=== PATIENT | male | born 1970 | race Caucasian/White ===

== ENCOUNTER 2022-08-25 18:24 | Inpatient (IN) | payer OTHER ==
[~2022-08-25] VITALS: Ht 185.4 cm; Wt 122.0 kg
--- NOTE | 2022-08-25 18:52 | NUR ---
ASSUME PT CARE, WAS SENT FROM [facility] FOR NOTED TACHYCARDIA AND HYPOXIA, PER EMS REPORT PT WAS RECENTLY DIAGNOSED W/ PNEUMONIA. 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 PLACED ON MONITOR. AWAITING MD THACKER
[2022-08-25] MEDS ORDERED: ACETAMINOPHEN 650 MG/SUPP.RECT RC ONE ×2 (19:00→19:09)
[2022-08-25] MEDS ORDERED: VANCOMYCIN 1 GM in IV D5W 250 ML IV ONE (19:00)
[2022-08-25] MEDS ORDERED: IV NS 0.9% 1,000 ML BAG IV ONE (19:00)
[2022-08-25] MEDS ORDERED: CEFEPIME 1 GM in IV D5W 50 ML IV ONE (19:00)
--- NOTE | 2022-08-25 19:01 | NUR ---
DR PERAZA AT BEDSIDE FOR EVAL.
--- NOTE | 2022-08-25 19:11 | NUR ---
COVID TEST COLLECTED AND SENT
[2022-08-25] MEDS ORDERED: CEFEPIME 1 GM VIAL ONE (19:23)
[2022-08-25] MEDS ORDERED: VANCOMYCIN 1 GM VIAL ONE (19:23)
[2022-08-25 19:35] LABS: BILIRUBIN,URINE NEGATIVE (NEGATIVE); COLOR,URINE YELLOW (YELLOW); LEUKOCYTE ESTERASE ,URINE NEGATIVE (NEGATIVE); NITRITE, URINE NEGATIVE (NEGATIVE); PH,URINE 5.5 (5.0-8.0); UGLUCOSE NEGATIVE (NEGATIVE); UROBILINOGEN,URINE 0.2 EU/dL (0.2)
[2022-08-25 19:36] LABS: PROTEIN,URINE NEGATIVE (NEGATIVE)
[2022-08-25 19:48] LABS: CARBON DIOXIDE 34 mmol/L (21-32); CHLORIDE 100 mmol/L (98-107); CREATININE 0.9 mg/dL (0.6-1.3); GLUCOSE 188 mg/dL (74-106); POTASSIUM 4.4 mmol/L (3.5-5.1); SODIUM SERUM 138 mmol/L (136-145); UREA NITROGEN, BLOOD 16 mg/dL (7-18)
--- NOTE | 2022-08-25 19:49 | NUR ---
XRAY DONE AT BEDSIDE
--- NOTE | 2022-08-25 19:50 | NUR ---
PT IS HARDSTICK. MIDLINE INSERTION REQUESTED. RN TANNERY WORKER MADE AWARE
[2022-08-25 20:01] LABS: ALANINE AMINOTRANSFERASE 178 U/L (12-78); ALBUMIN 3.4 g/dL (3.4-5.0); ALKALINE PHOSPHATASE 99 U/L (46-116); ASPARTATE AMINOTRANSFERASE 135 U/L (15-37); BILIRUBIN,DIRECT 0.2 mg/dL (0.0-0.2); BILIRUBIN,TOTAL 0.5 mg/dL (0.2-1.0); TOTAL PROTEIN, SERUM 8.8 g/dL (6.4-8.2)
--- NOTE | 2022-08-25 20:06 | NUR ---
LACTIC ACID 2.6
--- NOTE | 2022-08-25 20:06 | NUR ---
MIDLINE NURSE ETA 1 HR
[2022-08-25 20:27] LABS: BASOPHILS # (AUTO) 0.1 K/uL (0.0-0.2); BASOPHILS % (AUTO) 0.3 % (0.0-2.0); EOSINOPHILS % (AUTO) 1.6 % (0.0-6.0); HEMATOCRIT 38 % (39-51); HEMOGLOBIN 12.3 g/dL (13.5-17.5); LYMPHOCYTES # (AUTO) 2.5 K/uL (0.8-4.8); LYMPHOCYTES % (AUTO) 11.8 % (20.0-44.0); MEAN CORPUSCULAR HGB CONC 33 g/dl (31.0-36.0); MEAN CORPUSCULAR VOLUME 101 fL (80-96); MONOCYTES # (AUTO) 1.6 K/uL (0.1-1.30); MONOCYTES % (AUTO) 7.3 % (2.0-12.0); NEUTROPHILS # (AUTO) 17.1 K/uL (1.8-8.9); PLATELET COUNT (AUTO) 434 K/uL (150-450); RED BLOOD CELL COUNT(AUTO) 3.71 MIL/uL (4.5-6.0); WHITE BLOOD COUNT (AUTO) 21.6 K/uL (4.3-11.0)
[2022-08-25 20:50] LABS: BAND % (MANUAL) 4 % (0.0-5.0); EOSINOPHILS % (MANUAL) 1 % (0-4); LYMPHOCYTES % (MANUAL) 9 % (16-48); MONOCYTES % (MANUAL) 7 % (0-11.0); NEUTROPHILS % (MANUAL) 79 (42-76)
[2022-08-25] MEDS ORDERED: IV NS 0.9% 1,000 ML IV ONE (21:30)
--- NOTE | 2022-08-25 21:33 | NUR ---
CALLED [facility]
--- NOTE | 2022-08-25 21:34 | NUR ---
OSMIN SPEAKING WITH DR PERAZA
--- NOTE | 2022-08-25 22:06 | NUR ---
RM 117-1
--- NOTE | 2022-08-25 22:29 | NUR ---
REPORT GIVEN TO OJSEPH LEWIS FOR GIBSON
[2022-08-25] MEDS ORDERED: MAG HYDROX/AL HYDROX/SIMETH 30 ML UDC PO PRN (22:30)
[2022-08-25] MEDS ORDERED: Z GUARD REMEDY 4 OZ OINT TP PRN (22:30)
[2022-08-25] MEDS ORDERED: ONDANSETRON HCL/PF 4 MG/2 ML VIAL IVP PRN (22:30)
[2022-08-25] MEDS ORDERED: ACETAMINOPHEN 325 MG TABLET PO PRN (22:30)
[2022-08-25] MEDS ORDERED: MAGNESIUM HYDROXIDE 30 ML UDC PO PRN (22:30)
--- NOTE | 2022-08-25 22:43 | NUR ---
PT TRANSFERRING TO [facility] VIA ACLS PROTOCOL. VSS.
--- NOTE | 2022-08-25 22:46 | NUR ---
UPDATED ARMAAN(DAUGHTER) [phone]
--- NOTE | 2022-08-25 22:53 | NUR ---
PT TRANSFERRED TO 117-1 VIA ACLS PROTOCOL
[2022-08-26] MEDS: IV NS 0.9% 1,000 ML IV SCH ×3 (00:07→17:38)
[2022-08-26] MEDS: ENOXAPARIN SODIUM 40 MG/0.4 ML DISP.SYRIN SQ SCH ×2 (00:08→21:22)
[2022-08-26] MEDS ORDERED: CEFEPIME 1 GM VIAL ONE ×2 (00:09→06:02)
[2022-08-26] MEDS: CEFEPIME 2 GM in IV D5W 100 ML IV SCH ×4 (00:15→20:39)
--- NOTE | 2022-08-26 00:36 | NUR ---
TEACHING SUPERVISOR ADMISSION NOTES ADMITTED A 52 YEAR OLD MALE, CAME FROM ER VIA GURNEY. PATIENT IS A/O X 1 CAN OPEN EYE BUT NON-VERBAL, NO PAIN RESPONSE AND CONFUSED. ON OXYGEN VIA TRACHEOSTOMY MASK AT 10LPM SATURATING AT 99%,UNLABORED BREATHING. NO S/S OF DISTRESS OR CHEST PAIN AT THIS TIME. TRANSFERRED TO BED SAFELY AND SECURED. WITH VITAL SIGN OF BP:108/61, TEMP:98. HR:84, RR:19.ATTACHED TO TELE MONITORING DEVICE. SKIN ASSESSMENT PERFORMED NOTED SACRAL REDNESS, MID ABDOMEN RASHES AND TRACHE SITE RASHES PICTURE TAKEN AND RECORDED. WITH G-TUBE NOTED. BOWEL SOUNDS IS ACTIVE. WITH IV ACCESS AT RIGHR MIDLINE #20G WITH NS AT 100ML/HOUR INFUSING WELL.PATIENT AND WAS ORIENTED TO ROOM AND UNIT POLICY. PM CARE RENDERED. HSTORY TAKEN VIA CALL FROM LEONEL DUENAS NOTED AND RECORDED,PATIENT HAS COMPLETE WEAKNESS ON BOTH UPPER AND LOWER EXTREMITIES NOTED. UNCOOPERATIVE AND UNABLE TO RESPONSE. KEPT BED ON LOWER LOCKED POSITION, KEPT SIDE RAILS X 3 UP AT ALL TIMES. KEPT CALL LIGHT WITHIN REACH.WILL CONTINUE TO MONITOR.
[2022-08-26] MEDS ORDERED: ASPI-1169 GT (03:16)
[2022-08-26] MEDS ORDERED: ONDA4TAB11 GT (03:16)
[2022-08-26] MEDS ORDERED: NALO4SPR (03:16)
[2022-08-26] MEDS ORDERED: CARV3.122 GT (03:16)
[2022-08-26] MEDS ORDERED: LEVE1000 GT (03:16)
[2022-08-26] MEDS ORDERED: BACL10TA GT (03:16)
[2022-08-26] MEDS ORDERED: AMLO-213 GT (03:16)
[2022-08-26] MEDS ORDERED: SENN-261 GT (03:16)
[2022-08-26] MEDS ORDERED: ENOX40DI9 SQ (03:16)
[2022-08-26] MEDS ORDERED: ALBU2.5V13 NEB (03:16)
[2022-08-26] MEDS ORDERED: LANS30CA54 GT (03:16)
[2022-08-26] MEDS ORDERED: DOCU100C36 GT (03:16)
[2022-08-26] MEDS ORDERED: ACET325T53 GT (03:16)
[2022-08-26] MEDS ORDERED: CHLO473M3 MM (03:16)
[2022-08-26] MEDS ORDERED: MAGN24002 GT (03:16)
--- NOTE | 2022-08-26 06:31 | NUR ---
ROLL EDGE MACHINE OPERATOR CLOSING NOTES PATIENT IS ON BED,A/O X 0 ABLE TO OPEN EYES, NON-VERBAL, CONFUSED. ASLEEP ON MODERATE HIGH BACK REST POSITION. HOOKED TO OXYGEN VIA TRACHEOSTOMY MASK AT 10LPM SATURATING WELL. ON COMPLETE BED REST WITH LEFT HEMIPARESIS. WITH IV ACCESS AT RIGHT MIDLINE WITH NS 1000ML AT 100ML/HOUR INFUSING WELL. WITH G-TUBE KEPT DRY AND INTACT. INCONTINENT USES DIAPER. TURN PATIENT EVERY TWO HOURS PM CARE RENDERED. ALL DUE MEDICATIONS GIVEN ALL NEEDS ATTENDED. KEPT PATIENT WARM AND COMFORTABLE. KEPT BED ON LOWER LOCKED POSITION, KEPT SIDE RAILS UP X 3 ALL THE TIME. KEPT CALL LIGHT WITHIN PATIENT REACH. WILL CONTINUE TO MONITOR.
[2022-08-26 06:38] LABS: BASOPHILS # (AUTO) 0.1 K/uL (0.0-0.2); BASOPHILS % (AUTO) 0.8 % (0.0-2.0); EOSINOPHILS % (AUTO) 1.2 % (0.0-6.0); HEMATOCRIT 31 % (39-51); HEMOGLOBIN 10.4 g/dL (13.5-17.5); LYMPHOCYTES # (AUTO) 1.8 K/uL (0.8-4.8); LYMPHOCYTES % (AUTO) 12.3 % (20.0-44.0); MEAN CORPUSCULAR HGB CONC 33 g/dl (31.0-36.0); MEAN CORPUSCULAR VOLUME 101 fL (80-96); MONOCYTES # (AUTO) 1.4 K/uL (0.1-1.30); MONOCYTES % (AUTO) 9.6 % (2.0-12.0); NEUTROPHILS % (AUTO) 76.1 % (43.0-81.0); PLATELET COUNT (AUTO) 293 K/uL (150-450); RED BLOOD CELL COUNT(AUTO) 3.11 MIL/uL (4.5-6.0); WHITE BLOOD COUNT (AUTO) 14.5 K/uL (4.3-11.0)
--- NOTE | 2022-08-26 07:05 | NUR ---
RN OPENING NOTE PATIENT IS BEDBOUND, ABLE TO OPEN EYES, NON-VERBAL, CONFUSED. ASLEEP ON MODERATE HIGH BACK REST POSITION. HOOKED TO OXYGEN VIA TRACHEOSTOMY AT 10LPM SATURATING 96%. LEFT HEMIPARESIS. IV ACCESS RIGHT AC MIDLINE. G-TUBE IN PLACE. SAFETY MEASURES IMPLEMENTED, BED IN LOWER LOCKED POSITION, SIDE RAILS UP X 3 ALL THE TIME. WILL CONTINUE TO MONITOR.
[2022-08-26 07:09] LABS: CALCIUM, SERUM 8.5 mg/dL (8.5-10.1); CREATININE 0.7 mg/dL (0.6-1.3); MAGNESIUM 2.1 mg/dL (1.8-2.4); PHOSPHORUS 3.3 mg/dL (2.5-4.9)
[2022-08-26] MEDS ORDERED: ACETAMINOPHEN 650 MG/20.3 ML UDC GT PRN (11:00)
[2022-08-26] MEDS ORDERED: ALBUTEROL FS 2.5 MG/3 ML VIAL.NEB NEB PRN (11:00)
[2022-08-26] MEDS ORDERED: LORAZEPAM INJ 2 MG/ML VIAL IV PRN (11:00)
[2022-08-26] MEDS ORDERED: IPRATROPIUM NEB FS 0.5 MG/2.5 ML AMPUL.NEB NEB PRN (11:00)
[2022-08-26] MEDS ORDERED: MAGN400O6 GT (12:19)
[2022-08-26] MEDS ORDERED: NUTR250L62 GT (12:19)
[2022-08-26] MEDS ORDERED: BISA10SU11 RC (12:19)
[2022-08-26] MEDS ORDERED: IPRA3AMP23 IH ×2 (12:19)
[2022-08-26] MEDS: IPRATROPIUM NEB FS 0.5 MG/2.5 ML AMPUL.NEB NEB SCH ×4 (13:00→23:24)
[2022-08-26] MEDS ORDERED: ALBUTEROL HALF STRENGTH 1.25 MG/3 ML VIAL.NEB NEB SCH (13:00)
[2022-08-26] MEDS: ALBUTEROL HALF STRENGTH 1.25 MG/3 ML VIAL.NEB NEB SCH ×3 (15:37→23:24)
[2022-08-26] MEDS: BACLOFEN (10 MG) 10 MG TABLET GT SCH (17:35)
[2022-08-26] MEDS: DOCUSATE SODIUM 100 MG CAPSULE PO SCH (17:35)
[2022-08-26] MEDS: LEVETIRACETAM SOL (5 ML) 100 MG/ML UDC GT SCH (17:36)
[2022-08-26] MEDS: CHLORHEXIDINE GLUCONATE 15 ML UDC MM SCH (17:36)
[2022-08-26] MEDS: CARVEDILOL 3.125 MG TABLET GT SCH (17:37)
--- NOTE | 2022-08-26 19:25 | NUR ---
RN CLOSING NOTE PATIENT IS BEDBOUND, ABLE TO OPEN EYES, NON-VERBAL, CONFUSED. ASLEEP ON MODERATE HIGH BACK REST POSITION. O2 ENDORSE TO THE NEXT SHIFT FOR COCVIA TRACHEOSTOMY AT 10LPM SATURATING 96%. LEFT HEMIPARESIS. IV ACCESS RIGHT AC MIDLINE. G-TUBE IN PLACE. SAFETY MEASURES IMPLEMENTED, BED IN LOWER LOCKED POSITION, SIDE RAILS UP X 3 ALL THE TIME. WILL ENDORSE TO THE NEXT SHIFT FOR GIBSON.
--- NOTE | 2022-08-26 19:53 | NUR ---
ART EDUCATOR OPENING NOTE PATIENT IN BED WITH EYES OPEN, PT NON-VERBAL. PATIENT WITH T-PIECE ON 10 LPM OF O2, NO S/S OF DISTRESS OR SOB NOTED, BREATHING EVEN AND UNLABORED, RT AT BEDSIDE FOR BREATHING TX. PATIENT ON EXTERNAL AIR LIFT OPERATOR READING SINUS RHYTHM, HR: 80. IV ACCESS ON CARLA ML INTACT AND INFUSING NS @ 100 ML/HR. PATIENT ON GTF JEVITY 1.2 @ 80 ML/HR. SAFETY MEASURES IN PLACE: CALL LIGHT WITHIN REACH, SIDE RAILS UP X 3, BED LOCKED IN LOWEST POSITION, HOB ELEVATED, BED ALARM ON. WILL CONTINUE TO MONITOR PATIENT
[2022-08-26 20:00] VITALS: BP 125/72
--- NOTE | 2022-08-26 20:00 | NUR ---
KITCHEN CLERK NOTE PER NUTRITION NOTE, PATIENT WAS SUPPOSED TO BE STARTED ON JEVITY 1.2 @ 20 ML/HR AND INCREASE 10-15 ML Q4H UNTIL GOAL OF 80 ML/HR X 24 H REACHED. PREVIOUS RN DID NOT SCAN JEVITY BOTTLE BUT PER TIME WRITTEN ON BOTTLE FEEDING WAS STARTED AT 1300 AT 80 ML/HR. DECREASED JEVITY 1.2 TO 35 ML/HR, WILL INCREASE BY 15 ML Q4H UNTIL GOAL OF 80 ML/HR MET PER ORDER
[2022-08-26] MEDS: SENNOSIDES 8.6 MG TABLET GT SCH (21:15)
[2022-08-27] VITALS: BP 110/69
--- NOTE | 2022-08-27 | NUR ---
GENERAL REPAIR MECHANIC NOTE NO RESIDUAL NOTED ON GTUBE. INCREASED GT FEEDING BY 15 ML Q4H PER ORDER. JEVITY 1.2 NOW RUNNING @ 50 ML/HR. WILL ASSESS AGAIN AT 4 AM
[2022-08-27] MEDS: IPRATROPIUM NEB FS 0.5 MG/2.5 ML AMPUL.NEB NEB SCH ×6 (03:42→23:23)
[2022-08-27] MEDS: ALBUTEROL HALF STRENGTH 1.25 MG/3 ML VIAL.NEB NEB SCH ×6 (03:42→23:23)
[2022-08-27 04:00] VITALS: BP 125/77
--- NOTE | 2022-08-27 04:00 | NUR ---
ACADEMIC MANAGER NOTE NO RESIDUAL NOTED ON GTUBE. INCREASED GT FEEDING BY 15 ML Q4H PER ORDER. JEVITY 1.2 NOW RUNNING @ 65 ML/HR. WILL ENDORSE TO DAYSHIFT RN TO ASSESS AT 8 AM AND INCREASE TO GOAL OF 80 ML/HR X 24H
[2022-08-27] MEDS: IV NS 0.9% 1,000 ML IV SCH ×2 (04:41→14:29)
[2022-08-27] MEDS: CEFEPIME 2 GM in IV D5W 100 ML IV SCH ×3 (04:41→21:17)
[2022-08-27 06:19] LABS: BASOPHILS # (AUTO) 0.1 K/uL (0.0-0.2); BASOPHILS % (AUTO) 0.8 % (0.0-2.0); EOSINOPHILS % (AUTO) 7.6 % (0.0-6.0); HEMATOCRIT 31 % (39-51); HEMOGLOBIN 10.3 g/dL (13.5-17.5); LYMPHOCYTES # (AUTO) 1.4 K/uL (0.8-4.8); LYMPHOCYTES % (AUTO) 15.1 % (20.0-44.0); MEAN CORPUSCULAR HGB CONC 33 g/dl (31.0-36.0); MEAN CORPUSCULAR VOLUME 101 fL (80-96); MONOCYTES # (AUTO) 0.9 K/uL (0.1-1.30); MONOCYTES % (AUTO) 9.8 % (2.0-12.0); NEUTROPHILS % (AUTO) 66.7 % (43.0-81.0); PLATELET COUNT (AUTO) 283 K/uL (150-450); RED BLOOD CELL COUNT(AUTO) 3.07 MIL/uL (4.5-6.0)
--- NOTE | 2022-08-27 06:28 | NUR ---
DREDGE CAPTAIN CLOSING NOTES PATIENT IN BED WITH EYES OPEN, PT NON-VERBAL. PATIENT WITH T-PIECE ON 10 LPM OF O2, NO S/S OF DISTRESS OR SOB NOTED, BREATHING EVEN AND UNLABORED. PATIENT ON EXTERNAL AIRPLANE CLEANER READING SINUS RHYTHM, HR: 77. IV ACCESS ON CARLA ML INTACT AND INFUSING NS @ 100 ML/HR, RIGHT WRIST #22G INTACT AND SALINE LOCKED. PATIENT ON GTF JEVITY 1.2 @ 65 ML/HR, TO BE INCREASED TO GOAL OF 80 ML/HR AT 0800. MEDICATIONS GIVEN ORDERED, PT NEEDS MET THROUGHOUT SHIFT, PT TURNED AND REPOSITIONED. SAFETY MEASURES IN PLACE: CALL LIGHT WITHIN REACH, SIDE RAILS UP X 3, BED LOCKED IN LOWEST POSITION, HOB ELEVATED, BED ALARM ON. WILL ENDORSE TO DAYSHIFT RN FOR CONTINUITY OF CARE
[2022-08-27 06:42] LABS: CALCIUM, SERUM 8.5 mg/dL (8.5-10.1); CREATININE 0.8 mg/dL (0.6-1.3); MAGNESIUM 2.1 mg/dL (1.8-2.4); PHOSPHORUS 2.6 mg/dL (2.5-4.9); POTASSIUM 3.6 mmol/L (3.5-5.1)
--- NOTE | 2022-08-27 07:10 | NUR ---
3D SPECIALIST OPENING NOTES: RECEIVED PATIENT IN BED AWAKE BUT DOES NOT RESPOND TO NAME, NON VERBAL. NO RESPIRATORY DISTRESS NOTED. ON T-PIECE @ 10 L/MIN OF OXYGEN, BREATHING EVEN AND UNLABORED, TOLERATING WELL. PATIENT IS ON SR WITH HR OF 74 PER TELE MONITOR. IV ACCESS ON RIGHT UPPER ARM MIDLINE INTACT, PATENT AND INFUSING WITH NS @ 100 ML/HR, NO S/S INFILTRATION NOTED. ALSO HAS SALINE LOCK ON RIGHT WRIST #22G INTACT AND PATENT. ON G-TUBE FEEDING OF JEVITY 1.2 @ 65 ML/HR, NO RESIDUAL AND IN PLACE. HOB KEPT ELEVATED AT ALL TIMES. ALL SAFETY MEASURES IMPLEMENTED, BED LOCKED AND IN LOWEST POSITION WITH BED ALARM ON. SR UP X 2. CALL LIGHT WITHIN REACH. WILL CONTINUE TO MONITOR PATIENT THROUGHOUT SHIFT.
[2022-08-27 08:00] VITALS: BP 127/73
[2022-08-27] MEDS: AMLODIPINE BESYLATE 10 MG TABLET GT SCH (08:37)
[2022-08-27] MEDS: ASPIRIN 81 MG TAB.CHEW GT SCH (08:37)
[2022-08-27] MEDS: PANTOPRAZOLE 40 MG/PACK PACK GT SCH (08:37)
[2022-08-27] MEDS: DOCUSATE SODIUM 100 MG CAPSULE PO SCH ×2 (08:37→17:04)
[2022-08-27] MEDS: CHLORHEXIDINE GLUCONATE 15 ML UDC MM SCH ×2 (08:38→17:04)
[2022-08-27] MEDS: LEVETIRACETAM SOL (5 ML) 100 MG/ML UDC GT SCH ×2 (08:38→17:04)
[2022-08-27] MEDS: CARVEDILOL 3.125 MG TABLET GT SCH ×2 (08:38→17:05)
[2022-08-27] MEDS: BACLOFEN (10 MG) 10 MG TABLET GT SCH ×2 (08:38→17:04)
[2022-08-27 12:00] VITALS: BP 110/62
[2022-08-27] MEDS: JEVITY 1.2 CAL 1,000 ML BOTTLE GT PRN (14:37)
[2022-08-27 16:00] VITALS: BP 129/65
--- NOTE | 2022-08-27 18:46 | NUR ---
LUMBER MARKER CLOSING NOTES: PATIENT IN BED ASLEEP BUT EASILY AROUSES TO VOICE AND TACTILE STIMULI WITH AT BEDSIDE. PATIENT ON T-PIECE WIT FI02 35% AND OXYGEN @ 8L/MIN, TOLERATING WELL. PATIENT IS ON SR WITH HR OF 72 PER SILICA MIXER OPERATOR. IV ACCESS ON RIGHT UPPER ARM MIDLINE INFUSING WITH NS @ 100 ML/HR,IV SITE PATENT WITH NO S/S INFILTRATION NOTED. ALSO HAS SALINE LOCK ON RIGHT WRIST #22G INTACT AND PATENT. G-TUBE FEEDING OF JEVITY 1.2 @ 80 ML/HR X 24 HOURS. G-TUBE IN PLACE, FLUSHES WELL AND NO RESIDUAL NOTED ALL MEDS ADMINISTERED ORDERED. HOB KEPT ELEVATED AT ALL TIMES. ALL SAFETY MEASURES IMPLEMENTED, BED LOCKED AND IN LOWEST POSITION WITH BED ALARM ON. SR UP X 2. CALL LIGHT WITHIN REACH.WILL ENDORSE TO INCOMING NURSE FOR CONTINUITY OF CARE.
--- NOTE | 2022-08-27 19:44 | NUR ---
RN OPENING NOTES; RECEIVED PT IN BED AWAKED NON VERBAL,TRACH PT INTACT BLAS WELL SAT 99%,NO SOB/DISTRESS NOTED,IV SITE R FOREARM ML WITH NS 100ML/HR INFUSING WELL,SAFETY MEASURE IN PLACE,CALL LIGHT WITHIN REACH,WILL CONTINUE TO MONITOR.
[2022-08-27 20:00] VITALS: BP 109/63
[2022-08-27] MEDS: MUPIROCIN OINT 2% 22 GM TUBE NS SCH (21:17)
[2022-08-27] MEDS: SENNOSIDES 8.6 MG TABLET GT SCH (21:18)
[2022-08-27] MEDS: ENOXAPARIN SODIUM 40 MG/0.4 ML DISP.SYRIN SQ SCH (21:19)
[2022-08-28] MEDS: IV NS 0.9% 1,000 ML IV SCH ×3 (00:18→21:13)
[2022-08-28 01:00] VITALS: BP 147/63
[2022-08-28] MEDS: CEFEPIME 2 GM in IV D5W 100 ML IV SCH ×3 (04:05→21:13)
[2022-08-28] MEDS: IPRATROPIUM NEB FS 0.5 MG/2.5 ML AMPUL.NEB NEB SCH ×5 (04:15→20:19)
[2022-08-28] MEDS: ALBUTEROL HALF STRENGTH 1.25 MG/3 ML VIAL.NEB NEB SCH ×5 (04:15→20:19)
[2022-08-28 06:00] VITALS: BP 138/65
--- NOTE | 2022-08-28 06:12 | NUR ---
RN CLOSING NOTES; PATIENT IN BED WITH EYES CLOSED NON VERBAL,TRACH PT INTACT BLAS WELL SAT 98%,NO SOB/DISTRESS NOTED,NO SIGN FOR PAIN/DISCOMFORT DURING SHIFT,DUE MEDS GIVEN VIA GTUBE ORDER,ALL NEEDS ATTENDED,GTUBE JEVITY 1.2 @65ML/HR BLAS WELL,NO RESIDUAL NOTED,IV SITE R FOREARM ML WITH NS 100ML/HR INFUSING WELL,SAFETY MEASURE IN PLACE,CALL LIGHT WITHIN REACH,WILL ENDORSED TO NEXT SHIFT.
--- NOTE | 2022-08-28 07:10 | NUR ---
RN Note Received handover from DEBBIE Rosado. Patient's GCS is [id number]. SpO2 98% with FiO2 40%. Right forearm ML is dry and intact, patent with NS running at 100mL/hr. On Jevity feeding via g-tube, running at 45mL/hr. Telemetry showed SR HR 71/min. Bed is locekd and placed in the lowest position. All safety measures have been implemented. WIll continue monitoring and care.
[2022-08-28 08:00] VITALS: BP 133/74
[2022-08-28] MEDS: DOCUSATE SODIUM 100 MG CAPSULE PO SCH ×2 (08:45→16:28)
[2022-08-28] MEDS: LEVETIRACETAM SOL (5 ML) 100 MG/ML UDC GT SCH ×2 (08:45→16:28)
[2022-08-28] MEDS: PANTOPRAZOLE 40 MG/PACK PACK GT SCH (08:45)
[2022-08-28] MEDS: CARVEDILOL 3.125 MG TABLET GT SCH ×2 (08:45→16:28)
[2022-08-28] MEDS: AMLODIPINE BESYLATE 10 MG TABLET GT SCH (08:45)
[2022-08-28] MEDS: BACLOFEN (10 MG) 10 MG TABLET GT SCH ×2 (08:45→16:28)
[2022-08-28] MEDS: MUPIROCIN OINT 2% 22 GM TUBE NS SCH ×2 (08:46→21:14)
[2022-08-28] MEDS: ASPIRIN 81 MG TAB.CHEW GT SCH (08:46)
[2022-08-28] MEDS: CHLORHEXIDINE GLUCONATE 15 ML UDC MM SCH ×2 (08:46→16:28)
[2022-08-28 12:00] VITALS: BP 118/73
[2022-08-28] MEDS: JEVITY 1.2 CAL 1,000 ML BOTTLE GT PRN (14:32)
[2022-08-28 16:00] VITALS: BP 130/74
--- NOTE | 2022-08-28 19:20 | NUR ---
DIMENSION QUARRY SUPERVISOR OPENING NOTE RECEIVED PATIENT IN BED, ASLEEP, NONVERBAL, SPO2 AT 96%, NO SOB/DISTRESS NOTED. HAS TRACH SHILEY #6, FIO2 AT 35%. ON TELE MONITOR WITH SR HR 71. IV ACCESS ON RFA MIDLINE, INTACT AND PATENT WITH NS RUNNING AT 100 ML/HR. GTF JEVITY RUNNING AT 80 ML/HR, NO RESIDUAL NOTED. SAFETY MEASURES IN PLACE: BED LOCKED AND IN LOWEST POSITION, CALL LIGHT WITHIN REACH, HOB ELEVATED, SIDE RAILS UP X3.
[2022-08-28 20:00] VITALS: BP 120/72
[2022-08-28] MEDS: SENNOSIDES 8.6 MG TABLET GT SCH (21:13)
[2022-08-28] MEDS: ENOXAPARIN SODIUM 40 MG/0.4 ML DISP.SYRIN SQ SCH (21:17)
[2022-08-29] VITALS: BP 110/60
[2022-08-29] MEDS: IPRATROPIUM NEB FS 0.5 MG/2.5 ML AMPUL.NEB NEB SCH ×7 (01:51→23:38)
[2022-08-29] MEDS: ALBUTEROL HALF STRENGTH 1.25 MG/3 ML VIAL.NEB NEB SCH ×7 (01:51→23:38)
[2022-08-29 04:00] VITALS: BP 156/86
[2022-08-29] MEDS: CEFEPIME 2 GM in IV D5W 100 ML IV SCH ×3 (04:57→20:22)
[2022-08-29 06:22] LABS: BASOPHILS # (AUTO) 0.1 K/uL (0.0-0.2); BASOPHILS % (AUTO) 0.6 % (0.0-2.0); EOSINOPHILS % (AUTO) 11.2 % (0.0-6.0); HEMATOCRIT 33 % (39-51); LYMPHOCYTES # (AUTO) 1.8 K/uL (0.8-4.8); LYMPHOCYTES % (AUTO) 21.5 % (20.0-44.0); MEAN CORPUSCULAR HGB CONC 34 g/dl (31.0-36.0); MEAN CORPUSCULAR VOLUME 100 fL (80-96); MONOCYTES # (AUTO) 0.8 K/uL (0.1-1.30); MONOCYTES % (AUTO) 10.1 % (2.0-12.0); NEUTROPHILS # (AUTO) 4.7 K/uL (1.8-8.9); NEUTROPHILS % (AUTO) 56.6 % (43.0-81.0); PLATELET COUNT (AUTO) 325 K/uL (150-450); RED BLOOD CELL COUNT(AUTO) 3.27 MIL/uL (4.5-6.0); WHITE BLOOD COUNT (AUTO) 8.3 K/uL (4.3-11.0)
[2022-08-29 06:40] LABS: CALCIUM, SERUM 8.6 mg/dL (8.5-10.1); CREATININE 0.7 mg/dL (0.6-1.3); POTASSIUM 3.7 mmol/L (3.5-5.1)
--- NOTE | 2022-08-29 06:49 | NUR ---
RUBY RAILS DEVELOPER OPENING NOTE PATIENT IN BED, ASLEEP, NONVERBAL, SPO2 AT 97%, NO SOB/DISTRESS NOTED. HAS TRACH SHILEY #6, FIO2 AT 35%. ON TELE MONITOR WITH SR HR 75. IV ACCESS ON RFA MIDLINE, INTACT AND PATENT WITH NS RUNNING AT 100 ML/HR. GTF JEVITY RUNNING AT 80 ML/HR, NO RESIDUAL NOTED. ALL DUE MEDS WERE GIVEN AND NEEDS ATTENDED. VSS. SAFETY MEASURES MAINTAINED: BED LOCKED AND IN LOWEST POSITION, CALL LIGHT WITHIN REACH, HOB ELEVATED, SIDE RAILS UP X3. WILL ENDORSE TO ONCOMING NURSE FOR GIBSON. Addendum: 08/29/22 at 0651 by KIRSTEN SMITH RN RUBY RAILS DEVELOPER CLOSING NOTE
[2022-08-29] MEDS: IV NS 0.9% 1,000 ML IV SCH (07:07)
--- NOTE | 2022-08-29 07:45 | NUR ---
AGRICULTURE TECHNICIAN OPENING NOTE RECEIVED PATIENT IN BED, ASLEEP, NONVERBAL. NO PAIN OR DISCOMFORT NOTED AT THIS TIME. HAS TRACH SHILEY #6, FIO2 AT 35%. ON TELE MONITOR. IV ACCESS ON RFA MIDLINE, INTACT AND PATENT WITH NS RUNNING AT 100 ML/HR. GTF JEVITY RUNNING AT 80 ML/HR, NO RESIDUAL NOTED. ALL SAFETY MEASURES MAINTAINED: BED LOCKED AND IN LOWEST POSITION, CALL LIGHT WITHIN REACH, HOB ELEVATED, SIDE RAILS UP X3. BED ALARM ON
[2022-08-29 08:00] VITALS: BP 136/82
[2022-08-29] MEDS ORDERED: VANCOMYCIN 1.5 GM in IV D5W 500ml IV ONE (08:30)
[2022-08-29] MEDS: MUPIROCIN OINT 2% 22 GM TUBE NS SCH ×2 (09:00→20:29)
[2022-08-29] MEDS: ASPIRIN 81 MG TAB.CHEW GT SCH (09:13)
[2022-08-29] MEDS: CARVEDILOL 3.125 MG TABLET GT SCH ×2 (09:13→16:31)
[2022-08-29] MEDS: DOCUSATE SODIUM LIQ 100 MG/10 ML UDC GT SCH ×2 (09:13→16:25)
[2022-08-29] MEDS: CHLORHEXIDINE GLUCONATE 15 ML UDC MM SCH ×2 (09:14→16:26)
[2022-08-29] MEDS: BACLOFEN (10 MG) 10 MG TABLET GT SCH ×2 (09:14→16:26)
[2022-08-29] MEDS: LEVETIRACETAM SOL (5 ML) 100 MG/ML UDC GT SCH ×2 (09:14→16:25)
[2022-08-29] MEDS: PANTOPRAZOLE 40 MG/PACK PACK GT SCH (09:14)
[2022-08-29] MEDS: AMLODIPINE BESYLATE 10 MG TABLET GT SCH (09:14)
[2022-08-29 12:00] VITALS: BP 118/85
[2022-08-29] MEDS: JEVITY 1.2 CAL 1,000 ML BOTTLE GT PRN (12:23)
[2022-08-29 16:00] VITALS: BP 109/66
[2022-08-29] MEDS: VANCOMYCIN 1.25 GM in IV D5W 250 ML IV SCH (17:29)
--- NOTE | 2022-08-29 19:17 | NUR ---
LEAK GANG SUPERVISOR CLOSING NOTE PATIENT IN BED, ASLEEP, NONVERBAL.RESPONDS TO PAINFUL STIMULI. NO PAIN OR DISCOMFORT NOTED AT THIS TIME. HAS TRACH SHILEY #6, FIO2 AT 35%. ON TELE MONITOR. IV ACCESS ON RFA MIDLINE, INTACT AND PATENT WITH NS RUNNING AT 100 ML/HR. GTF JEVITY RUNNING AT 80 ML/HR, NO RESIDUAL NOTED. ALL SAFETY MEASURES MAINTAINED: BED LOCKED AND IN LOWEST POSITION, CALL LIGHT WITHIN REACH, HOB ELEVATED, SIDE RAILS UP X3. BED ALARM ON.ENDORSED TO HAIR PREPARER RN FOR CONUITY OF CARE
--- NOTE | 2022-08-29 19:25 | NUR ---
SALES LEDGER CLERK OPENING NOTE RECEIVED PATIENT FROM AM NURSE; ASLEEP IN BED, NONVERBAL; RESPONDS TO PAINFUL STIMULI; NO S/S OF PAIN OR DISCOMFORT NOTED AT THIS TIME; NOTED TRACH ALEXSANDRALEY #6 , FIO2 AT 35%; HOOKED TO TELE MONITORINGL; WITH IV ACCESS ON RFA MIDLINE, INTACT AND PATENT WITH NORMAL SALINE RUNNING AT 100 ML/HR. WITH GASTRIC TUBE FEEDING WITH JEVITY RUNNING AT 80 ML/HR, NO RESIDUAL NOTED; SAFETY MEASURES IMPLEMENTED: BED LOCKED AND IN LOWEST POSITION, CALL LIGHT WITHIN REACH, HOB ELEVATED, SIDE RAILS UP X3; BED ALARM ON; WILL CONTINUE TO MONITOR THROUGHOUT SHIFT
[2022-08-29 20:00] VITALS: BP 103/61
[2022-08-29] MEDS: ENOXAPARIN SODIUM 40 MG/0.4 ML DISP.SYRIN SQ SCH (20:34)
[2022-08-29] MEDS: SENNOSIDES 8.6 MG TABLET GT SCH (21:30)
[2022-08-30] VITALS: BP 116/67
[2022-08-30] MEDS: VANCOMYCIN 1.25 GM in IV D5W 250 ML IV SCH ×3 (00:43→16:44)
[2022-08-30 04:00] VITALS: BP 119/71
[2022-08-30] MEDS: ALBUTEROL HALF STRENGTH 1.25 MG/3 ML VIAL.NEB NEB SCH ×5 (04:06→20:25)
[2022-08-30] MEDS: IV NS 0.9% 1,000 ML IV PRN ×2 (04:06→16:43)
[2022-08-30] MEDS: IPRATROPIUM NEB FS 0.5 MG/2.5 ML AMPUL.NEB NEB SCH ×5 (04:06→20:25)
[2022-08-30] MEDS: CEFEPIME 2 GM in IV D5W 100 ML IV SCH ×3 (04:41→20:29)
--- NOTE | 2022-08-30 06:50 | NUR ---
RIVETER PORTABLE MACHINE CLOSING NOTE PATIENT IN BED, NONVERBAL, SPONTANEOUSLY OPEN EYES SOMETIMES, RESPONDS TO PAINFUL STIMULI; NO S/S OF PAIN OR DISCOMFORT NOTED AT THIS TIME; WITH TRACH SHILEY #6 , FIO2 AT 35%; HOOKED TO TELE MONITORING CURRENTLY READING SINUS RHYTHM 60-70S BPM; WITH IV ACCESS ON RFA MIDLINE, INTACT AND PATENT WITH NORMAL SALINE RUNNING AT 100 ML/HR; WITH GASTRIC TUBE FEEDING WITH JEVITY RUNNING AT 80 ML/HR, NO RESIDUAL NOTED; ADMINISTERED MEDICATIONS PRESCRIBED; PATIENT'S NEEDS ATTENDED; MONITORED PATIENT ACCORDINGLY; SAFETY MEASURES IMPLEMENTED: BED LOCKED AND IN LOWEST POSITION, CALL LIGHT WITHIN REACH, HOB ELEVATED, SIDE RAILS UP X3; WILL ENDORSE TO AM NURSE FOR GIBSON.
[2022-08-30 07:04] LABS: CALCIUM, SERUM 8.7 mg/dL (8.5-10.1); CREATININE 0.7 mg/dL (0.6-1.3)
--- NOTE | 2022-08-30 07:05 | NUR ---
ADJUNCT PROFESSOR OF ENGLISH OPEN NOTE: OBTUNDED. TRACH WITH COOL AEROSOL WITH 65 % FIO2. TANK TRUCK MILK RECEIVER SINUS REYNA 56. MID LINE ON RIGHT FOREARM PATENT WITH IVF OF 100 ML/HR. GT IN PLACE PATENT WITH JEVITY OF 80ML/HR. ASPIRATION PRECAUTIONS MAINTAINED. HOB ELEVATED. BILATERAL HALF SIDE RAILS UP X2. BED IS LOCKED, IN LOW POSITION, EXIT ALARM ON. CALL LIGHT IN REACH.
[2022-08-30 08:00] VITALS: BP 126/75
[2022-08-30] MEDS: DOCUSATE SODIUM LIQ 100 MG/10 ML UDC GT SCH ×2 (09:15→16:45)
[2022-08-30] MEDS: ASPIRIN 81 MG TAB.CHEW GT SCH (09:15)
[2022-08-30] MEDS: CARVEDILOL 3.125 MG TABLET GT SCH ×2 (09:15→16:46)
[2022-08-30] MEDS: BACLOFEN (10 MG) 10 MG TABLET GT SCH ×2 (09:16→16:46)
[2022-08-30] MEDS: LEVETIRACETAM SOL (5 ML) 100 MG/ML UDC GT SCH ×2 (09:16→16:45)
[2022-08-30] MEDS: PANTOPRAZOLE 40 MG/PACK PACK GT SCH (09:16)
[2022-08-30] MEDS: CHLORHEXIDINE GLUCONATE 15 ML UDC MM SCH ×2 (09:16→16:46)
[2022-08-30] MEDS: AMLODIPINE BESYLATE 10 MG TABLET GT SCH (09:16)
[2022-08-30] MEDS: MUPIROCIN OINT 2% 22 GM TUBE NS SCH ×2 (09:32→20:29)
[2022-08-30] MEDS: JEVITY 1.2 CAL 1,000 ML BOTTLE GT PRN (11:24)
[2022-08-30 12:00] VITALS: BP 109/57
[2022-08-30 16:00] VITALS: BP 119/70
--- NOTE | 2022-08-30 18:30 | NUR ---
CAD MANAGER CLOSING NOTE: OBTUNDED MOST OF THE DAY, WHEN FAMILY COMES RESIDENT OPENS EYES RARELY AND SEEMS TO OCCASIONAL SMILE AND MOUTHING THE WORD YES WHEN ASKED IF HE WAS OKAY BY ONE FAMILY MEMBER. TRACH WITH COOL AEROSOL WITH 65 % FIO2. MARKETING RESEARCH COORDINATOR SINUS RHYTHM 69. MID LINE ON RIGHT FOREARM PATENT WITH IVF OF 100 ML/HR. GT IN PLACE PATENT WITH JEVITY OF 80ML/HR. ASPIRATION PRECAUTIONS MAINTAINED. KEPT CLEAN AND COMFORTABLE TURNED AND REPOSITIONED. WOUND CARE DONE ORDERED. HOB ELEVATED. BILATERAL HALF SIDE RAILS UP X2. BED IS LOCKED, IN LOW POSITION, EXIT ALARM ON. CALL LIGHT IN REACH.
[2022-08-30 20:00] VITALS: BP 118/69
[2022-08-30] MEDS: ENOXAPARIN SODIUM 40 MG/0.4 ML DISP.SYRIN SQ SCH (20:29)
[2022-08-30] MEDS: SENNOSIDES 8.6 MG TABLET GT SCH (21:34)
--- NOTE | 2022-08-30 22:00 | NUR ---
RN NOTE BEDSIDE REPORT GIVEN TO KAILYN LEWIS FOR CONTINUITY OF CARE. DUE MEDS SCHEDULED UNTIL 2200 GIVEN.
[2022-08-31] MEDS: ALBUTEROL HALF STRENGTH 1.25 MG/3 ML VIAL.NEB NEB SCH ×7 (00:47→23:30)
[2022-08-31] MEDS: IPRATROPIUM NEB FS 0.5 MG/2.5 ML AMPUL.NEB NEB SCH ×7 (00:47→23:30)
[2022-08-31] MEDS: VANCOMYCIN 1.25 GM in IV D5W 250 ML IV SCH (02:00)
[2022-08-31] MEDS: CEFEPIME 2 GM in IV D5W 100 ML IV SCH (04:31)
--- NOTE | 2022-08-31 07:25 | NUR ---
WET PROCESS TECHNICIAN OPENING NOTE RECEIVED PATIENT IN BED, ASLEEP, NONVERBAL.RESPONDS TO PAINFUL STIMULI. NO PAIN OR DISCOMFORT NOTED AT THIS TIME. HAS TRACH SHILEY #6, FIO2 AT 35%. ON TELE MONITOR. IV ACCESS ON RFA MIDLINE, INTACT AND PATENT WITH NS RUNNING AT 100 ML/HR. GTF JEVITY RUNNING AT 80 ML/HR, NO RESIDUAL NOTED. ALL SAFETY MEASURES MAINTAINED: BED LOCKED AND IN LOWEST POSITION, CALL LIGHT WITHIN REACH, HOB ELEVATED, SIDE RAILS UP X3. BED ALARM ON.
--- NOTE | 2022-08-31 07:38 | NUR ---
Report received from ongoing nurse. Patient is nonverbal, meds well tolerated. No sign of respiratory distress observed. IV site is dry and patent. No redness, rash present at site. Will continue to monitor patient for safety.
[2022-08-31 08:00] VITALS: BP 129/78
[2022-08-31] MEDS: MUPIROCIN OINT 2% 22 GM TUBE NS SCH ×2 (09:00→21:20)
[2022-08-31 09:28] LABS: CREATININE 0.6 mg/dL (0.6-1.3); POTASSIUM 4.1 mmol/L (3.5-5.1)
[2022-08-31] MEDS: PANTOPRAZOLE 40 MG/PACK PACK GT SCH (09:48)
[2022-08-31] MEDS: CHLORHEXIDINE GLUCONATE 15 ML UDC MM SCH ×2 (09:48→16:18)
[2022-08-31] MEDS: DOCUSATE SODIUM LIQ 100 MG/10 ML UDC GT SCH ×2 (09:48→16:17)
[2022-08-31] MEDS: ASPIRIN 81 MG TAB.CHEW GT SCH (09:48)
[2022-08-31] MEDS: BACLOFEN (10 MG) 10 MG TABLET GT SCH ×2 (09:48→16:18)
[2022-08-31] MEDS: LEVETIRACETAM SOL (5 ML) 100 MG/ML UDC GT SCH ×2 (09:48→16:17)
[2022-08-31] MEDS: AMLODIPINE BESYLATE 10 MG TABLET GT SCH (09:53)
[2022-08-31] MEDS: CARVEDILOL 3.125 MG TABLET GT SCH ×2 (09:53→16:18)
[2022-08-31] MEDS: JEVITY 1.2 CAL 1,000 ML BOTTLE GT PRN (09:56)
[2022-08-31 12:00] VITALS: BP 114/79
--- NOTE | 2022-08-31 13:00 | NUR ---
RN NOTE AWARE OF COVID POSITIVE DIAGNOSIS. ORDERED PCR TEST. ORDERS NOTED AND CARRIED OUT
[2022-08-31] MEDS: IV NS 0.9% 1,000 ML IV PRN (14:56)
[2022-08-31 16:00] VITALS: BP 121/79
--- NOTE | 2022-08-31 18:08 | NUR ---
RN NOTE NOTIFIED OF COVID POSITIVE AND PT WOULD WANT HIM TO BE TESTED FOR CRPA. DR. SZYMANSKI SAID OKAY TO ORDER
--- NOTE | 2022-08-31 19:30 | NUR ---
MICROBIOLOGICAL ANALYST OPENING NOTE RECEIVED PATIENT IN BED, NONVERBAL, BUT RESPONDS TO PAINFUL STIMULI. SPO2 AT 97%, NO SOB/DISTRESS NOTED. HAS TRACH SHILEY #6, FIO2 AT 35%. ON TELE MONITOR WITH SR HR 70. IV ACCESS ON RFA MIDLINE, INTACT AND PATENT WITH NS RUNNING AT 100 ML/HR. GTF JEVITY RUNNING AT 80 ML/HR, NO RESIDUAL NOTED. SAFETY MEASURES IN PLACE: BED LOCKED AND IN LOWEST POSITION, CALL LIGHT WITHIN REACH, HOB ELEVATED, SIDE RAILS UP X3.
--- NOTE | 2022-08-31 19:47 | NUR ---
RT neb tx not given due to pos covid result
--- NOTE | 2022-08-31 19:52 | NUR ---
INSURANCE COUNSEL CLOSING NOTE PATIENT IN BED, ASLEEP, NONVERBAL.RESPONDS TO PAINFUL STIMULI. NO PAIN OR DISCOMFORT NOTED AT THIS TIME. HAS TRACH SHILEY #6, FIO2 AT 35%. ON TELE MONITOR. IV ACCESS ON RFA MIDLINE, INTACT AND PATENT WITH NS RUNNING AT 100 ML/HR. GTF JEVITY RUNNING AT 80 ML/HR, NO RESIDUAL NOTED. PT ON ISOLATION PRECAUTIONS DUE TO COVID POSITIVE RESULT.PCR TEST STILL PENDING. ALL SAFETY MEASURES MAINTAINED: BED LOCKED AND IN LOWEST POSITION, CALL LIGHT WITHIN REACH, HOB ELEVATED, SIDE RAILS UP X3. BED ALARM ON.ENDORSED TO ROUTING CLERK RN FOR CONUTITY OF CARE
[2022-08-31 20:00] VITALS: BP 121/72
[2022-08-31] MEDS: SENNOSIDES 8.6 MG TABLET GT SCH (21:20)
[2022-08-31] MEDS: ENOXAPARIN SODIUM 40 MG/0.4 ML DISP.SYRIN SQ SCH (21:22)
[2022-09-01] VITALS: BP 110/64
[2022-09-01] MEDS: ALBUTEROL HALF STRENGTH 1.25 MG/3 ML VIAL.NEB NEB SCH ×4 (03:30→14:47)
[2022-09-01] MEDS: IPRATROPIUM NEB FS 0.5 MG/2.5 ML AMPUL.NEB NEB SCH ×4 (03:30→14:47)
[2022-09-01 04:00] VITALS: BP 120/70
--- NOTE | 2022-09-01 07:05 | NUR ---
RN OPENING NOTE PATIENT IS BEDBOUND, ON DROPLET PRECAUTIONS, COVID AND MRSA POSITIVE. PT ASLEEP ON MODERATE HIGH BACK REST POSITION. ON OXYGEN VIA TRACHEOSTOMY AT 8 LPM SATURATING 98%. LEFT SIDE HEMIPARESIS. IV ACCESS RIGHT AC MIDLINE. G-TUBE IN PLACE. G TUBE IN PLACE, JEVITY RUINING 80ML/HR X 24 H. SAFETY MEASURES IMPLEMENTED, BED IN LOWER LOCKED POSITION, SIDE RAILS UP X 3 ALL THE TIME. WILL CONTINUE TO MONITOR.
[2022-09-01 07:19] LABS: ABG BASE EXCESS 6.6 mmol/L; ABG PCO2 51.2 mmHg (35.0-45.0); ABG PH 7.419 (7.350-7.450); ABG PO2 67.4 mmHg (75.0-100.0); AaDO2 122.6 mmHg; COHb 0.5 % (0.5-1.5); MetHb 0.1 % (0.0-1.5); O2Hb 92.4 % (94.0-97.0); SITE, ABG Right Radial
[2022-09-01 08:00] VITALS: BP 105/67
--- NOTE | 2022-09-01 08:00 | NUR ---
ASSEMBLY STOCK SUPERVISOR CLOSING NOTE PATIENT IN BED, NONVERBAL, BUT RESPONDS TO PAINFUL STIMULI. SPO2 AT 99%, NO SOB/DISTRESS NOTED. HAS TRACH SHILEY #6, FIO2 AT 35%. ON TELE MONITOR WITH SR HR 74. IV ACCESS ON RFA MIDLINE, INTACT AND PATENT WITH NS RUNNING AT 100 ML/HR. GTF JEVITY RUNNING AT 80 ML/HR, NO RESIDUAL NOTED. ALL DUE MEDS WERE GIVEN AND NEEDS ATTENDED. SAFETY MEASURES IN PLACE: BED LOCKED AND IN LOWEST POSITION, CALL LIGHT WITHIN REACH, HOB ELEVATED, SIDE RAILS UP X3. ENDORSED TO AM NURSE FOR GIBSON.
[2022-09-01] MEDS: CHLORHEXIDINE GLUCONATE 15 ML UDC MM SCH ×2 (08:58→16:44)
[2022-09-01] MEDS: BACLOFEN (10 MG) 10 MG TABLET GT SCH ×2 (08:58→16:42)
[2022-09-01] MEDS: PANTOPRAZOLE 40 MG/PACK PACK GT SCH (08:58)
[2022-09-01] MEDS: LEVETIRACETAM SOL (5 ML) 100 MG/ML UDC GT SCH ×2 (08:58→16:44)
[2022-09-01] MEDS: DOCUSATE SODIUM LIQ 100 MG/10 ML UDC GT SCH ×2 (08:58→16:43)
[2022-09-01] MEDS: ASPIRIN 81 MG TAB.CHEW GT SCH (08:58)
[2022-09-01] MEDS: AMLODIPINE BESYLATE 10 MG TABLET GT SCH (09:00)
[2022-09-01] MEDS: CARVEDILOL 3.125 MG TABLET GT SCH ×2 (09:00→16:43)
[2022-09-01] MEDS: MUPIROCIN OINT 2% 22 GM TUBE NS SCH (09:00)
[2022-09-01 12:00] VITALS: BP 107/64
[2022-09-01 16:00] VITALS: BP 107/61
[2022-09-01 16:43] VITALS: BP 107/61
== END 2022-09-01 18:14 | DRG 720 ==
LOC: ER 18:26 → TELE1 22:13
PROVIDERS: ADMIT Internal Medicine; ATTEND Internal Medicine Nephrology
PROC: 05H933Z Insertion of Infusion Device into Right Brachial Vein, Percutaneous Approach (ICD-10-PCS; principal; 2022-08-25)
DX: A41.89 Other specified sepsis (principal); J96.21 Acute and chronic respiratory failure with hypoxia; J69.0 Pneumonitis due to inhalation of food and vomit; G93.41 Metabolic encephalopathy; R40.3 Persistent vegetative state; J95.851 Ventilator associated pneumonia; U07.1 COVID-19; J15.6 Pneumonia due to other Gram-negative bacteria; E87.20 Acidosis, unspecified; D68.59 Other primary thrombophilia; Z93.0 Tracheostomy status; G81.94 Hemiplegia, unspecified affecting left nondominant side; Z86.73 Personal history of transient ischemic attack (TIA), and cerebral infarction without residual deficits; Z78.9 Other specified health status; Z93.1 Gastrostomy status; R13.10 Dysphagia, unspecified; G40.909 Epilepsy, unspecified, not intractable, without status epilepticus; Z74.09 Other reduced mobility; E66.9 Obesity, unspecified; Z68.35 Body mass index [BMI] 35.0-35.9, adult; R65.20 Severe sepsis without septic shock; J98.11 Atelectasis; Y95 Nosocomial condition; R74.01 Elevation of levels of liver transaminase levels; L98.9 Disorder of the skin and subcutaneous tissue, unspecified; Y84.8 Other medical procedures as the cause of abnormal reaction of the patient, or of later complication, without mention of misadventure at the time of the procedure; Y92.129 Unspecified place in nursing home as the place of occurrence of the external cause
CPT/HCPCS: 31720; 36415; 36600; 71045-TC; 80048-TC; 80076-TC; 80202-TC; 82962-TC; 83605-TC; 83735-TC; 83880; 84100-TC; 84484-TC; 85025-TC; 86704; 86803; 87040-TC; 87081-TC; 87086-TC; 87340; 87806; 94640-TC; 94760-TC; 94762-TC; 94799-TC; A4223; A4349; A4623; A6403; A7526; C9803; G0378; J0692; J1650; J1953; J3370; J7030; J7060; U0003